=== PATIENT | female | born 2000 | race Caucasian/White ===

== ENCOUNTER 2020-07-04 18:07 | Emergency (ER) | payer OTHER, SELFPAY ==
--- NOTE | 2020-07-04 | XR_ITS ---
EXAMINATION: XR KNEE, RIGHT CLINICAL INFORMATION: Pain. COMPARISON: None TECHNIQUE: Two views of the right knee. FINDINGS: Bones and soft tissues are normal. No fracture or joint effusion. Alignment is anatomic. Joint spaces are well maintained. No abnormal soft tissue calcification. XR/XR knee RT 2V IMPRESSION: Normal right knee.
[2020-07-04 18:31] VITALS: BP 148/83; PULSE 102; RESP 16; TEMP 36.8; O2SAT 97; BMI 39.4
--- NOTE | 2020-07-04 20:19 | PC.NURSE ---
DUKE WRAP APPLIED TO R KNEE. PATIENT ALREADY HAD OWN CRUTCHES.
--- NOTE | 2020-07-04 20:30 | ED.LOWEXIN ---
HPI - Extremity Injury (Lower) General Chief Complaint: Trauma Stated Complaint: Ankle Pain Time Seen by Provider: 07/04/20 20:16 Source: patient Mode of arrival: ambulatory Limitations: no limitations History of Present Illness HPI Narrative: States at work during a restraint patient pushed her in the right knee area felt the knee buckle and fell onto the knee. Having right knee pain. complaint: knee injury Injury: Right: knee Place: work Severity: moderate Other symptoms: none Treatments prior to arrival: cold therapy Related Data Allergies Allergy/AdvReac Type Severity Reaction Status Date / Time No Known Allergies Allergy Unverified 05/12/20 16:50 [No Known Allergies*] Dust Allergy Unknown Uncoded 10/24/18 00:00 Review of Systems Review of Systems: Constitutional: No Weight loss, No Fever, No Chills, No Night Sweats, No Fatigue, No Malaise ENT/Mouth: No Hearing loss, No Ear Pain, No Nasal Congestion, No Sinus Pain, Eyes: No Eye Pain, No Swelling, No Redness Cardiovascular: No Chest Pain, No SOB Respiratory: No Cough, No Sputum, No Wheezing, No Smoke Exposure, No Dyspnea Gastrointestinal: No Nausea, No Vomiting, No Diarrhea, No Constipation, No abdominal Pain Genitourinary: no irregular bleeding, No Dysuria, No Urinary Frequency, No Hematuria, No Urinary Incontinence, No Urgency, No Flank Pain, No Urinary Flow Changes, No Hesitancy Musculoskeletal: No joint pain, No Myalgias, No Joint Swelling Skin: No Skin Lesions, No rash Neuro: No Weakness, No Numbness, No Paresthesias Psych: No Anxiety/Panic, No Depression Heme/Lymph: No Bruising, No Bleeding,No Lymphadenopathy Endocrine: No Polyuria, No Polydipsia, No Temperature Intolerance Yes all other systems are reviewed and are negative [facility] Past Medical History Attestation statement: The following information was validated with the patient. Source: unable to obtain Social History Social History Smoking Status: Never smoker Use of substances other than those prescribed or required for medical reasons: Yes Substance Use Type: Marijuana Substance Use Frequency: Occasionally Advance Directives: No Physical Exam Vital Signs: Vital Signs: Last Vital Signs Temp 98.2 F 07/04/20 18:31 Pulse 102 H 07/04/20 18:31 Resp 16 07/04/20 18:31 BP 148/83 H 07/04/20 18:31 Pulse Ox 97 07/04/20 18:31 Body Mass Index 39.4 Reviewed Const: General: cooperative and healthy appearing; No acute distress or intoxicated appearing Nutritional Appearance: average body habitus Orientation/consciousness: patient oriented x3 HENMT: Head: Yes normal to inspection Ears: hearing grossly normal bilaterally Eyes: General: appearance normal, both eyes and all related structures Visual Aragon: normal visual aragon by confrontation Neck: Neck: Yes normal visual inspection and No tender Thyroid: Thyroid normal Chest: Chest palpation & inspection: normal inspection of the chest Resp: Effort & Inspection: normal respiratory effort Cardio: Jugular venous distension: no JVD Skin: General skin exam: no rashes or lesions noted Neuro: General: patient oriented x3 Extrem: General: Yes normal to inspection Elbow/forearm/wrist images: 1. No swelling, negative drawer test MDM - Extremity Injury (Lower) MDM Narrative Medical decision making narrative: AP consistent with strain type injury. X-ray negative. Has her own crutches provided Romario wrap. Medical Records Attestation: I reviewed the patient's medical records. Lab Data Attestation: I reviewed the patient's lab results. Imaging Data Right knee x-ray: Radiologist's impression: [address] [address] XRay Report Signed Patient: Tsering Magdaleno#: [id number] : 2000Acct:[id number] Age/Sex: 20 / FADM Date: 07/04/20 Loc: HO.ED Attending Dr: Ordering Physician: Generic ED Physician Date of Service: 07/04/20 Procedure(s): XR knee RT 2V Accession Number(s): [id number] cc: Generic ED Physician~ EXAMINATION: XR KNEE, RIGHT CLINICAL INFORMATION: Pain. COMPARISON: None TECHNIQUE: Two views of the right knee. FINDINGS: Bones and soft tissues are normal. No fracture or joint effusion. Alignment is anatomic. Joint spaces are well maintained. No abnormal soft tissue calcification. XR/XR knee RT 2V IMPRESSION: Normal right knee. Dictated By:GHULAM DAVIS MD Signed By:<Electronically signed by GHULAM DAVIS MD in OV>07/04/201910 DD/ 04 TD/TT: Director Patient Accounting: LONA Discharge Plan Discharge Clinical Impression: Right knee sprain Patient Disposition: Home, Self-Care Instructions: Knee Sprain (ED), Crutch Instructions (ED) Additional Instructions: Rest, ice, compress Elevate Use crutches as instructed Romario wrap for comfort Gradually increase activity as tolerated if pain persist after week follow-up with orthopedic As discussed As this happened at work please follow-[facility] with [facility] as well Thank you Referrals: Frederick Swift MD [Physician] - 1 week Physician,None [Primary Care Provider] - 1 week (Your primary care doctor) Interventions: ED Discharge Assessment Last Done: 07/04/20 20:48 Discharge Date/Time: 07/04/20 20:49
== END 2020-07-04 20:49 | disposition home or self-care (01) ==
PROVIDERS: Emergency Provider Emergency Medicine
DX: M25.571 Pain in right ankle and joints of right foot (principal)
CPT/HCPCS: 73560; 99283; 99284

== ENCOUNTER 2020-07-19 17:39 | Outpatient (REF) | payer OTHER, SELFPAY | END 2020-07-19 17:40 | disposition home or self-care (01) | LOC: HO.LAB 17:39 | PROVIDERS: Visit Provider Internal Medicine | DX: Z20.828 Contact with and (suspected) exposure to other viral communicable diseases (principal) | CPT/HCPCS: C9803; U0003 ==

== ENCOUNTER 2021-09-22 10:48 | Outpatient (REF) | payer OTHER, SELFPAY ==
[2021-09-22 13:28] LABS: Hematocrit 40.6 % (37.0-47.0); Mean Corpuscular Hemoglobin 26.2 pg (27.0-33.0); Mean Corpuscular Volume 81.9 fL (80.0-98.0); Mean Platelet Volume 9.9 fL (9.4-12.3); Platelet Count 420 X10*3/uL (160-400); Red Blood Count 4.96 X10*6/uL (4.20-5.50); Red Cell Distribution Width 15.1 % (11.0-16.0); White Blood Count 10.5 X10*3/uL (4.8-10.8)
[2021-09-22 13:44] LABS: Alanine Aminotransferase 23 U/L (0-31); Albumin Level 4.1 g/dL (3.5-5.0); Alkaline Phosphatase 79 U/L (39-117); Anion Gap 14 (12-20); Aspartate Amino Transferase 19 U/L (5-31); Bilirubin Direct 0.2 mg/dL (0.0-0.5); Bilirubin Total 0.7 mg/dL (0.0-1.0); Blood Urea Nitrogen 7 mg/dL (9-16); Calcium 9.2 mg/dL (8.4-10.2); Carbon Dioxide 24 mmol/L (22-29); Chloride 104 mmol/L (96-108); Cholesterol 226 mg/dL; Estimated Glomerular Filt Rate > 60; Glucose Fasting 105 mg/dL (60-99); HDL Cholesterol 37 mg/dL; LDL Cholesterol Calculated 131 mg/dl; Potassium 4.4 mmol/L (3.3-5.1); Sodium 138 mmol/L (135-145); Total Protein 7.6 g/dL (6.5-8.0); Triglycerides 294 mg/dL
[2021-09-22 14:04] LABS: TSH reflex Free T4 1.51 uIU/mL (0.32-4.0)
== END 2021-09-22 10:49 | disposition home or self-care (01) ==
LOC: HO.WFDLDS 10:48
PROVIDERS: Visit Provider Hospitalist
DX: Z00.00 Encounter for general adult medical examination without abnormal findings (principal)
CPT/HCPCS: 36415; 80048; 80061; 80076; 84443; 85027

== ENCOUNTER 2025-04-16 13:11 | Outpatient (REF) | payer OTHER, SELFPAY ==
[2025-04-16 16:17] LABS: Hematocrit 37.9 % (37.0-47.0); Hemoglobin 12.4 g/dl (12.0-16.0); Mean Corpuscular HGB Conc 32.7 g/dl (31.0-35.0); Mean Corpuscular Hemoglobin 27.2 pg (27.0-33.0); Mean Corpuscular Volume 83.1 fL (80.0-98.0); NRBC Abs Auto 0.000 X10*3/uL (0.0-0.012); NRBC Pct Auto 0.0 /100WBC (0.0-0.2); Platelet Count 354 X10*3/uL (160-400); Red Blood Count 4.56 X10*6/uL (4.20-5.50); White Blood Count 10.2 X10*3/uL (4.8-10.8)
[2025-04-16 16:36] LABS: Alanine Aminotransferase 14 U/L (0-31); Albumin Level 4.4 g/dL (3.5-5.0); Alkaline Phosphatase 55 U/L (39-117); Anion Gap 14 (12-20); Aspartate Amino Transferase 19 U/L (5-31); Blood Urea Nitrogen 10 mg/dL (9-16); Calcium 8.9 mg/dL (8.4-10.2); Carbon Dioxide 21 mmol/L (22-29); Chloride 108 mmol/L (96-108); Cholesterol 204 mg/dL (<200); Estimated Glomerular Filt Rate > 60; HDL Cholesterol 50 mg/dL (>40); Potassium 3.8 mmol/L (3.3-5.1); Sodium 139 mmol/L (135-145); Total Protein 7.2 g/dL (6.5-8.0); Triglycerides 143 mg/dL (<150)
[2025-04-16 17:07] LABS: Folate 11.3 ng/mL (> or = 4.0); Vitamin B12 320 pg/mL (200-900)
== END 2025-04-16 13:12 | disposition home or self-care (01) ==
LOC: HO.WFDLDS 13:11
PROVIDERS: PCP Nurse Practitioner Family; Visit Provider Nurse Practitioner Family
DX: Z76.89 Persons encountering health services in other specified circumstances (principal); Z00.00 Encounter for general adult medical examination without abnormal findings; Z28.21 Immunization not carried out because of patient refusal; F33.0 Major depressive disorder, recurrent, mild; R73.01 Impaired fasting glucose; E66.01 Morbid (severe) obesity due to excess calories; F41.1 Generalized anxiety disorder; E78.2 Mixed hyperlipidemia; E78.5 Hyperlipidemia, unspecified; F90.0 Attention-deficit hyperactivity disorder, predominantly inattentive type; N62 Hypertrophy of breast; M54.9 Dorsalgia, unspecified; Z92.89 Personal history of other medical treatment; Z68.34 Body mass index [BMI] 34.0-34.9, adult
CPT/HCPCS: 36415; 80053; 80061; 82306; 82607; 82746; 83036; 84443; 85027; 96127

== ENCOUNTER 2025-04-16 13:11 | Outpatient (AMB) | payer OTHER, SELFPAY ==
--- OUTSIDE RECORDS SUMMARY | 2025-04-16 13:14 | XMS_ITS | Patient Health Record ---
Author Organization [facility] Address [address] [place] [address] Care Team Providers [employer] Manager Name Role Phone AREN PAYNE Unavailable [phone] Allergies No Known Allergies Reason For Referral No Information Medications Medication SIG (Take, Route, Frequency, Duration) Notes Start Date End Date Status Vibha 13.5 MG as directed Intrauterine Active miSOPROStol 200 MCG 2 tablets Orally night before procedure; Duration: 1 days 11/30/2020 Not-Taking buPROPion HCl ER (Smoking Det) 150 MG 1 tablet in the morning Orally Once a day; Duration: 30 day(s) ALSO TAKES 75 MG AT NIGHT Active Bactrim DS 800-160 MG 1 tablet Orally Twice a day; Duration: 10 day(s) 01/18/2021 Not-Taking FLUoxetine HCl 20 MG 1 capsule Orally On ce a day Not-Taking Abilify 10 MG 1 tablet Orally Once a day Not-Taking traZODone HCl 100 MG 1 tablet at bedtime Orally Once a day Not-Taking Social History Tobacco Use: Social History Observation Description Date Details (start date - stop date) Current some da y smoker NA - NA Tobacco Use/Smoking Question Answer Notes Are you a current some day smoker Alcohol Screen (Audit-C) Question Answer Notes Did you have a drink contain ing alcohol in the past year? Yes How often did you have a dri nk containing alcohol in the past year? 2 to 3 times a week (3 points) How many drinks did you have on a typical day when you were drinking in the past year? 1 or 2 drinks (0 point) How often did you have 6 or more drinks on one occasion in the past year? Never (0 point) Points 3 Interpretation Positive Problems Problem Type SNOMED Code ICD Code Onset Dates Problem Status W/U Status Risk Notes Problem Bipolar disorder (76881240) Bipolar disorder, unspecified (F31.9) Active confirmed Problem Anxiety disorder (348270822) Anxiety disorder, unspecified (F41.9) Active confirmed Problem Post-traumati c stress disorder (45499200) Post-traumatic stress disorder, unspecified (F43.10) Active confirmed Plan Of Treatment Pending Test Test Name Order Date Test, Urine 01/04/2021 Test, Urine 01/18/2021 ANTI-HEPATITIS C 11/30/2020 HEP. B SURF. AG 11/30/2020 SYPHILIS TESTING 11/30/2020 HIV AB-AG 4TH GENERATION 11/30/2020 ULTRASOUND: PELVIC W/TRANSVAGINAL 2021 Insurance Providers Payer Name Payer Address Payer Phone Subscriber Number Group Number Insured Name Patient Relationship to Insured Coverage Start Date Coverage End Date [facility] [address] [place] [address] [phone] [id number] LIANA MCGRAW Self - patient is the insured [facility] [employer] [employer] [address] [address] [place] [address] [id number] LIANA MCGRAW Self - patient is the insured Medical (General) History Medical History History ICD Code Encounter for screening for depression Z 13.31 Anxiety disorder, unspecified F41.9 Post-traumatic stress disorder, unspecif ied F43.10 Bipolar disorder, unspecified F31.9 Surgical History Surgery Date(Month/Year)
--- NOTE | 2025-04-16 13:17 | A.OFFPC_ITS ---
Vital Signs 04/16/25 13:18 Height 5 ft 4 in Weight 203 lb 8 oz BMI 34.9 BP 126/84 Blood Pressure Location Rt brachial Position Sitting Respiration 12 Pulse 91 Pulse Source Pulse Oximeter Temp 98.6 F Temp Source Oral Pulse Oximetry (%) 96 Oxygen Delivery Method Room Air Intake Visit Reasons: YVONNE from [facility] Intake Note: New patient visit Radiation Protection Technician Required: No Allergies No Known Allergies (No Known Allergies*) Allergy (Verified 04/16/25 13:43) Dust Allergy (Mild, Uncoded 04/16/25 13:17) sneezing, watery eyes. 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 - Untreated anxiety and depression with therapy in place. This is per her choice; does not like meds. Denies SI/HI - ADHD managed with Adderall. Outside pr escriber - Hyperlipidemia and impaired fasting gl ucose noted on previous labs. - Upper back pain related to breast size ; exacerbated by weight fluctuations. Would like to consult with breast surgery to discuss reduction. Past Surgical History - Arterial repair surgery on the right a rm. - Multiple dental surgeries including wi sdom tooth and extra teeth removal. Family History - Mother is under my care; no specific a ilments discussed. Social History - Lives with mother, sister, and brother . 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 - Expresses feeling safe at home. - Engages in sexual activity; practices safe sex. - Describes anxiety with medical procedu res such as blood draws. Health Maintenance - Declined tetanus vaccination. - Discussed anxiety towards lab tests an d reassured about process. - Emphasized annual wellness visits and staying in care with ANIMAL CAREGIVER. - Encouraged to undergo physical therapy for upper back pain related to breast size. Review of Systems - General: Reports anxiety about doctor? s appointments. - Respiratory: Denies daily inhaler use, previously used during COVID-19. - Sexual: Reports safe sexual practices. - Musculoskeletal: Reports upper back pa in. - Psychiatric: Reports severe anxiety. Physical Exam General: Well developed, well nourished, in no acute distress. Appears stated age. Head: Normocephalic, atraumatic. Eyes: Pupils are equal, round and reactive to light and accommodation. Conjunctivae are clear. Vision grossly normal. Ears: TMs clear AU, EACS WNL Nose: Patent, without discharge.Mouth: There are no ulcers or lesions noted. No inflammation, no post nasal drip, no plaques nor exudates. Neck: Supple, no adenopathy, + thyromegaly. Breast: Edu on SBE Lungs: Clear to auscultation bilaterally. No rales, rhonchi or wheeze noted. Good air flow in all hess. Heart: Regular rate and rhythm. No murmurs, click, rubs or gallops are noted. Abdomen: Bowel sounds present in all quadrants. The abdomen is soft, nontender, with no masses or organomegaly noted. No hernias are noted. : Deferred. Reviewed recommendations for routine SENIOR NET PROGRAMMER Musculoskeletal: Joints are nontender, without swelling, redness, or effusions. Range of motion is observed to be normal. Pulses: Peripheral pulses are equal and palpable bilaterally. Extremities: No clubbing, cyanosis nor edema is noted. Neurologic: Gait and station normal. Cranial Nerves 2-12 intact. Motor strength grossly symmetrical and intact. No sensory loss. Balance normal. Skin: No rashes, ulcers, or lesions noted. Turgor is good. Skin color is good. Hair and nails are without abnormalities. Psych: Normal eye contact, affect and mood appropriate, and normal interactions. Patient is alert and appropriate to context. Results Pending Discussion Notes I engaged in a detailed discussion with the patient regarding her current health status and management plans. We addressed her anxiety surrounding medical appointments and her refusal of tetanus vaccination. We discussed ongoing management of ADHD with Adderall, which she obtains virtually. The possibility of physical therapy was introduced for her upper back pain related to sig nificant breast size, caused by weight fluctuations. Further diagnostic studies such as updating labs and Pap smears were explained with reassurance about the process to ease anxiety. I reviewed the importance of staying in routine care and the potential consequences of discontinuation. Patient was given time to ask questions. All questions were answered to their satisfaction. Assessment and Plan 1. Anxiety - Continue counselin 2. ADHD - Maintain Adderall therapy and care wit h outside prescriber 3. Obesity - Lifestyle and dietary modifications. 4. Hyperlipidemia and Impaired Fasting G lucose - Monitor labs; dietary counseling. 5. Upper Back Pain/gynecomastia - Start physical therapy and breast surg kimberly referral. 6. Health Maintenance - Adherence to regular screening and exa ms. Patient Instructions - Continue your meetings with the daquane mary. - Stay on Adderall as directed for ADHD. - Follow a balanced diet and remain acti ve to manage obesity. - Plan to have your labs drawn as discus sed. - Begin physical therapy for back pain a s arranged. - RTO 1 year CPE, sooner as needed Consent Patient was informed and verbally consented to the use of an ambient scribe for clinic note documentation during this visit. An additional 20 minutes was spent addressing the problem(s) noted at todays visit. This includes time spent before the visit reviewing the chart, time spent during the visit, and time spent after the visit on documentation reviewing laboratory results, diagnostic imaging, medications, performing a medically necessary evaluation, counseling on diagnoses, care coordination, ordering appropriate tests, ordering appropriate medications, review of tests performed by other providers, reporting test results with the patient, communication with other healthcare providers. [facility] Medical History (Updated 04/16/25 @ 14:11 by [facility]) Bumps on skin Depression with anxiety IBS (irritable bowel syndrome) Injury of right axillary artery Surgical History (Updated 04/16/25 @ 13:23 by Malissa Chino CMA) History of mandibular surgery History of surgery on arm Family History (Updated 04/16/25 @ 13:23 by Malissa Chino CMA) Maternal Grandmother Cancer Other FH: mental illness Substance abuse Social History Housing: House Alcohol intake: current Alcohol intake frequency: other Alcohol type: hard liquor Patient Tobacco Use Status: Former Tobacco user (quit 2 months ago) Tobacco use type: Smokeless Tobacco Years Smoked: 1 e-Cigarette/Vaping Use: Former Use (quit 2 months ago, vaped for 5 years) Second Hand Smoke Exposure: No Substance Use Type: Marijuana service: No Current occupational status: employed Current occupation: registered electronics maintenance technician Current occupational exposures/hazards: No Cognitive needs: No Hearing needs: No Vision needs: No Questionnaire PHQ-9 Over the last 2 weeks, how often have you been bothered by any of the following problems? 1. Little interest or pleasure in doing things: several days 2. Feeling down, depressed, or hopeless: several days 3. Trouble falling or staying asleep, or sleeping too much: nearly every day 4. Feeling tired or having little energy: several days 5. Poor appetite or overeating: several days 6. Feeling bad about yourself - or that you are a failure or have let yourself or your family down: several days 7. Trouble concentrating on things, such as reading the newspaper or watching television: several days 8. Moving or speaking so slowly that other people could have noticed. Or the opposite - being so fidgety or restless that you have been moving around a lot more than usual: several days 9. Thoughts that you would be better off or of hurting yourself in some way: not at all Total score: 10 Depression Screening Interpretation: Positive Depression Screening Follow-up: Existing condition and In treatment Depression Screening Done: Yes Source: Developed by Drs. Bonilla Watson, Casi Garza, Kolby Banks and colleagues, with an educational lio from [employer]. Thrive Questionnaire Date Thrive assessed: 04/16/25 I am a: Patient What is your living situation today?: I have a steady place to live Within the past 12 months, did the food you bought not last and you didn't have the money to get more?: I choose not to answer this question Within the past 12 months, did you worry whether your food would run out before you got money to buy more?: I choose not to answer this question Do you have trouble paying for medicines?: I choose not to answer this question Do you have trouble getting transportation to medical appointments?: I choose not to answer this question Do you have trouble paying your heating and electricity bill?: I choose not to answer this question Do you have trouble taking care of your child, family member or friend?: I choose not to answer this question Do you have trouble with day-to-day activities such as bathing, preparing meals, shopping, managing finances, etc.?: I choose not to answer this question Are you currently unemployed and looking for a job?: I choose not to answer this question Are you interested in more education?: I choose not to answer this question Please select the resources that you would like help with: None Currently or been in a relationship where the following occur: I choose not to answer THRIVE Score: 0 AUDIT C Alcohol Use Questionnaire (AUDIT-C) 1. How often do you have a drink containing alcohol?: 2-4 times a month 2. How many drinks containing alcohol do you have on a typical day when you are drinking?: 3 or 4 3. How often do you have six or more drinks on one occasion?: Never Total Score: 3 Score Reviewed/Action Taken: Yes RAFAEL-7 AMB Questionnaire RAFALE-7 Date RAFAEL - 7 assessed: 04/16/25 Feeling nervous, anxious, or on edge: 3 = Nearly every day Not being able to stop or control worryin = Nearly every day Worrying too much about different things: 3 = Nearly every day Trouble relaxin = Nearly every day Being so restless that it is hard to sit still: 0 = Not at all Becoming easily annoyed or irritable: 1 = Several days Feeling afraid as if something awful might happen: 3 = Nearly every day Total RAFAEL-7 score (0-4 normal; 5-9 mild; 10-14 moderate; 15-21 severe): 16 Source: Developed by Drs. Bonilla Watson, Casi Garza, Kolby Banks and colleagues, with an educational lio from [employer]. RAFAEL-7 Assessment Billing RAFAEL-7 Assessment Tool: RAFAEL-7 Assessment 67124 Physical exam (Primary Care) Vital Signs: Last Vital Signs Temp 98.6 F 04/16/25 13:18 Pulse 91 04/16/25 13:18 Resp 12 04/16/25 13:18 BP 126/84 04/16/25 13:18 Pulse Ox 96 04/16/25 13:18 Oxygen Delivery Method Room Air 04/16/25 13:18 BMI result Body Mass Index 34.9 BMI Assessment/Plan discussion: High BMI High, discussed plan: lifestyle Tobacco/Smoking Status: Tobacco use Status Tobacco use date assessed 04/16/25 04/16/25 13:30 Patient Tobacco Use Status Former Tobacco user (quit 2 04/16/25 13:30 months ago) Tobacco use type Smokeless Tobacco 04/16/25 13:30 e-Cigarette/Vaping Use Former Use (quit 2 months 04/16/25 13:30 ago, vaped for 5 years) PHQ-9: PHQ-9 Score PHQ-9: Total score 10 04/16/25 13:43 Depression Screening Interpretation: Positive Depression Screening Follow-up: Existing condition and In treatment Thrive Assessment: Date of Thrive Assessment Date Thrive assessed 04/16/25 04/16/25 13:43 Currently or been in a relationship where the following occur: I choose not to answer Coding Level of Care Code New Pt Level 3 (12966) New Pt Prev Care 18-39yr(78103 Diagnoses Encounter to establish care with new provider Z76.89 Obesity (BMI 30-39.9) E66.9 Tetanus, diphtheria, and acellular pertussis (Tdap) vaccination declined Z28.21 Mild episode of recurrent major depressive disorder F33.0 Major depression episode severity: mild RAFAEL (generalized anxiety disorder) F41.1 Morbid obesity E66.01 Moderate mixed hyperlipidemia not requiring statin therapy E78.2 Hyperlipidemia type: moderate mixed hyperlipidemia not requiring statin therapy Elevated fasting glucose R73.01 Attention deficit hyperactivity disorder (ADHD), predominantly inattentive type F90.0 Attention deficit-hyperactivity disorder type: predominantly inattentive Female gynecomastia N62 Upper back pain M54.9 Encounter for general adult medical examination without abnormal findings Z00.00 History of Papanicolaou smear of cervix Z92.89 Additional Codes RAFAEL-7 Assessment Billing - RAFAEL-7 Assessment Tool: RAFAEL-7 Assessment 79062 ([id number]) Assessment & Plan Assessment & Plan (1) Encounter to establish care with new provider: Code(s): Z76.89 - Persons encountering health services in other specified circumstances (2) Obesity (BMI 30-39.9): Code(s): E66.9 - Obesity, unspecified Category: Medical (3) Tetanus, diphtheria, and acellular pertussis (Tdap) vaccination declined: Code(s): Z28.21 - Immunization not carried out because of patient refusal Category: Medical (4) MDD (major depressive disorder), recurrent episode: Code(s): F33.9 - Major depressive disorder, recurrent, unspecified Category: Medical Qualifiers: Major depression episode severity: mild Qualified Code(s): F33.0 - Major depressive disorder, recurrent, mild (5) RAFAEL (generalized anxiety disorder): Code(s): F41.1 - Generalized anxiety disorder Category: Medical (6) Morbid obesity: Code(s): E66.01 - Morbid (severe) obesity due to excess calories Category: Medical (7) HLD (hyperlipidemia): Code(s): E78.5 - Hyperlipidemia, unspecified Category: Medical Qualifiers: Hyperlipidemia type: moderate mixed hyperlipidemia not requiring statin therapy Qualified Code(s): E78.2 - Mixed hyperlipidemia (8) Elevated fasting glucose: Code(s): R73.01 - Impaired fasting glucose Category: Medical (9) ADHD: Code(s): F90.9 - Attention-deficit hyperactivity disorder, unspecified type Category: Medical Qualifiers: Attention deficit-hyperactivity disorder type: predominantly inattentive Qualified Code(s): F90.0 - Attention-deficit hyperactivity disorder, predominantly inattentive type (10) Female gynecomastia: Code(s): N62 - Hypertrophy of breast Category: Medical (11) Upper back pain: Code(s): M54.9 - Dorsalgia, unspecified Category: Medical (12) Encounter for general adult medical examination without abnormal findings: Onset Date: ~04/16/25 Code(s): Z00.00 - Encounter for general adult medical examination without abnormal findings Category: Medical (13) History of Papanicolaou smear of cervix: Onset Date: ~09/2021 Code(s): Z92.89 - Personal history of other medical treatment Category: Medical Plan , Orders: Orders Comprehensive Met. Panel Today E66.01 - Morbid (severe) obesity due to excess calories, E66.9 - Obesity, unspecified, E78.5 - Hyperlipidemia, unspecified, R73.01 - Impaired fasting glucose Hemoglobin A1c Today E66.01 - Morbid (severe) obesity due to excess calories, E66.9 - Obesity, unspecified, E78.5 - Hyperlipidemia, unspecified, R73.01 - Impaired fasting glucose Lipid Panel Today E66.01 - Morbid (severe) obesity due to excess calories, E66.9 - Obesity, unspecified, E78.5 - Hyperlipidemia, unspecified, R73.01 - Impaired fasting glucose TSH reflex Free T4 Today E66.01 - Morbid (severe) obesity due to excess calories, E66.9 - Obesity, unspecified, E78.5 - Hyperlipidemia, unspecified, R73.01 - Impaired fasting glucose Vitamin B12 and Folate Today E66.01 - Morbid (severe) obesity due to excess calories, E66.9 - Obesity, unspecified, E78.5 - Hyperlipidemia, unspecified, R73.01 - Impaired fasting glucose PT Evaluation and Treatment Today M54.9 - Dorsalgia, unspecified, N62 - Hypertrophy of breast Complete Blood Count no Diff Today E66.01 - Morbid (severe) obesity due to excess calories, E66.9 - Obesity, unspecified, E78.5 - Hyperlipidemia, unspecified, R73.01 - Impaired fasting glucose Vitamin D 25-OH Total Today E66.01 - Morbid (severe) obesity due to excess calories, E66.9 - Obesity, unspecified, E78.5 - Hyperlipidemia, unspecified, R73.01 - Impaired fasting glucose Referrals Breast Surgery Referral M54.9 - Dorsalgia, unspecified, N62 - Hypertrophy of breast Patient Instructions: Walk-In Care (Urgent Care): We Make it Easy Walk-in for urgent medical issues such as: ? Seasonal Allergies ? Insect Bites ? Cough ? Diarrhea ? Acute Asthma Attacks ? Back, Knee or Joint Pain ? Ear Infection ? Fever without a Rash ? Headaches ? Nausea ? [place], Rash or Skin Irritation ? Sore Throat ? Sports Physicals ? Vomiting Most insurances are accepted. Patients do not need to be part of the [facility] to seek care at the walk-in clinic. Locations [facility] [place] [address] ? [phone] [facility] Walk-In Care in [place] provides services to ages 18 and over. Open Saturday-Saturday: 7 a.m. to 5 p.m. and Saturday: 9 a.m. to 3 p.m.* *Hours may vary due to staffing availability. To confirm Walk-In Care hours in [place], please call [phone]. [address] [place] [address] ? [phone] [facility] Walk-In Care in [place] provides services to ages 12 and over. Open Saturday-Saturday: 8 a.m. to 5 p.m. Hours may vary due to staffing availability. To confirm Walk-In Care hours in [place], please call [phone]. LABORATORY SERVICES: [facility] Lab ? Primary Location [address] [place] [address] Saturday through Saturday 6:00 AM ? 5:00 PM Saturday 7:00 AM ? 11:00 AM* [phone] The [facility] Lab is centrally located near the front entrance of the [facility] for easy outpatient access. Convenient parking is provided for outpatients. *Hours may vary due to staffing availability. To confirm Laboratory hours for any location, please call [phone]. Offsite Location For your convenience, we offer offsite laboratory draw stations at the following locations: [address] [place] [address] ? [address], [address] Saturday through Saturday 7:30 AM ? 1:00 PM* [phone] *Hours may vary due to staffing availability. To confirm Laboratory hours for any location, please call [phone]. [place] ? [address] Saturday through Saturday 6:00 AM ? 3:30 PM* Saturday 6:30 AM ? 3 PM* [phone] *Hours may vary due to staffing availability. To confirm Laboratory hours for any location, please call [phone] [place] [address] Saturday through Saturday 7:30 AM ? 4:00 PM* [phone] *Hours may vary due to staffing availability. To confirm Laboratory hours for any location, please call [phone] [place] [address] Saturday through 9:00 AM ? 4:00 PM* *Hours may vary due to staffing availability. To confirm Laboratory hours for any location, please call [phone]. Appointments are not necessary. Walk-ins are welcome. Like all the departments throughout the [facility], our Lab undergoes frequent reviews to ensure the quality and accuracy of test results, and our staff takes special pride in its status as a nationally accredited facility. Patient Portal: [facility] ONE PATIENT. ONE RECORD. BETTER CARE. [facility] has a fully integrated, cutting- edge mobile electronic health information system that has revolutionized the way we care for our patients and manage our organization. This system improves communication and coordination enabling us to provide safe, higher-quality care, and an overall positive experience for staff and patients. Our first priority, as always, is to deliver the highest quality care possible. The system is running in the background supporting that priority. This portal is for all [facility] and [facility] services and practices. If you are experiencing any technical difficulties with enrolling or logging into the Patient Portal please complete the [facility] Patient Portal Technical Support Form. [facility] now offers a new secure on-line interactive tool for patients to review their health information ? ?Patient Portal. This interactive web portal will enable patients and their families to take an active role in their care by providing easy, secure access to their health information via the internet. The Patient Portal provides patients with instant access to their health information, including laboratory results, medications, allergies, demographic information, visit history, and more. In addition to managing their own care, parents and health care proxies with authorized consent will appreciate the ability to access the records of those individuals for whom they provide care. Please note: if you wish to gain access (Proxy) to another patient?s portal, you will be required to come to the Medical Records Department in person at [facility]. Both the patient giving proxy access and the proxy will need to provide photo identification and complete the appropriate authorization. The Patient Portal also allows track their appointments online. The [facility] Patient Portal also saves patients time by allowing them to submit updates to their demographic and contact information prior to their visits. Portal email notifications will also alert patients to any new activity on their portal, such as test results and new appointments. In order to initially enroll in the [facility] Patient Portal, you will need to enter some required information including the following: * your [facility] Medical Record number * your personal home email address * name * date of Please note: In order to enroll in the [facility] Patient Portal, we need to have your email address on file in your electronic medical record. ?The email address needs to be specific for one person (yourself) in order for your Portal enrollment to be successful. ?You can update your email address in person with o Registration staff when you are registering for a hospital visit. ?Otherwise, you will need to come to the Health Information Management (Medical Records) Department at [facility]. ?We are open from Saturday ? Saturday from 7:30 a.m. ? 4:30 p.m. ?You will be required to present a photo id. Once you have successfully enrolled in the Patient Portal, you will receive a one-time user id and password for the Portal, sent to your email address. ?This will allow you to log into the Patient Portal within 99 hrs and reset your own logon id and password, and define personal security questions. ?Once your permanent login and password have been set, you can log into the [facility] Patient Portal at any time via the blue button above or from the Portal Logon button on any page of the [facility] website. [facility] and [facility] encourage all of our patients to enroll in Patient Portal as it presents a valuable opportunity for patients and their families to actively participate in their care and stay healthy Welcome to [facility]. ?We look forward to working with you. Health screenings for women You should visit your health care provider from time to time, even if you are healthy. The purpose of these visits is to: Screen for medical issues Assess your risk for future medical problems Encourage a healthy lifestyle Update vaccinations and other preventive care services Help you get to know your provider in case of an illness Information Even if you feel fine, you should still see your provider for regular checkups. These visits can help you avoid problems in the future. For example, the only way to find out if you have high blood pressure is to have it checked regularly. High blood sugar and high cholesterol levels also may not have any symptoms in the early stages. A simple blood test can check for these conditions. There are specific times when you should see your provider or receive specific health screenings. The [place] Preventive Services Task Force publishes a list of recommended screenings. Below are screening guidelines for women ages 18 to 39. BLOOD PRESSURE SCREENING Your blood pressure should be checked at least once every 3 to 5 years if: Your blood pressure is in the normal range (top number less than 120 mm Hg and bottom number less than 80 mm Hg) You don't have risk factors for high blood pressure Ask your provider if you need your blood pressure checked more often if: The top number is 120 to 129 mm Hg or the bottom number is 70 to 79 mm Hg You have diabetes, heart disease, kidney problems, are overweight, or have certain other health conditions You have a first-degree relative with high blood pressure You are Black You had high blood pressure during a If the top number is 130 mm Hg or greater or the bottom number is 80 mm Hg or greater, this is considered stage 1 hypertension. Schedule an appointment with your provider to learn how you can reduce your blood pressure. Watch for blood pressure screenings in your area. Ask your provider if you can stop in to have your blood pressure checked. BREAST CANCER SCREENING Experts do not agree about the benefits of breast self-exams in finding breast cancer or saving lives. Talk to your provider about what is best for you. A screening mammogram is not recommended for most women under age 40. Your provider may discuss and recommend mammograms, MRI scans, or ultrasounds if you have an increased risk for breast cancer, such as: A mother or sister who had breast cancer at a young age (most often starting scr eening earlier than the age the close relative was diagnosed) You carry a high-risk genetic marker CERVICAL CANCER SCREENING Cervical cancer screening should start at age 21 years unless your provider advises otherwise. After the first test: Women ages 21 through 29 should have a Pap test every 3 years. Exoprts do not agree on whether HPV testing is recommended for this age group. Women ages 30 through 65 should be screened with either a Pap test every 3 years or the HPV test every 5 years or both tests every 5 years (called cotesting ). Women who have been treated for precancer (cervical dysplasia) should continue to have Pap tests for 20 years after treatment or until age 65, whichever is longer. If you have had your uterus and cervix removed (total hysterectomy), and you have not been diagnosed with cervical cancer or precancer (high grade cervical neoplasia), you do not need cervical cancer screening. CHOLESTEROL SCREENING Cholesterol screening should begin at: Age 45 for women with no known risk factors for coronary heart disease Age 20 for women with known risk factors for coronary heart disease Repeat cholesterol screening should take place: Every 5 years for women with normal cholesterol levels More often if changes occur in lifestyle (including weight gain and diet) More often if you have diabetes, heart disease, kidney problems, or certain other conditions DIABETES SCREENING You should be screened for diabetes starting at age 35 and then repeated every 3 years if you have no risk factors for diabetes. Screening may need to start earlier and be repeated more often if you have other risk factors for diabetes, such as: You have a first degree relative with diabetes. You are overweight or have obesity. You have high blood pressure, prediabetes, or a history of heart disease. Screening for diabetes should be done if you are planning to become and you are overweight and have other risk factors such as high blood pressure. DENTAL EXAM Go to the dentist once or twice every year for an exam and cleaning. Your dentist will evaluate if you need more frequent visits. EYE EXAM Have an eye exam every 5 to 10 years before age 40. If you have vision problems, have an eye exam every 2 years or more often if recommended by your provider. You should have an eye exam that includes an examination of your retina (back of your eye) at least every year if you have diabetes. IMMUNIZATIONS Commonly needed vaccines include: Flu shot: get one every year. COVID-19 vaccine: ask your provider what is best for you. Tetanus-diphtheria and acellular pertussis (Tdap) vaccine: have one at or after age 19 as one of your tetanus-diphtheria vaccines if you did not receive it as an adolescent. Tetanus-diphtheria: have a booster (or Tdap) every 10 years. Varicella vaccine: receive 2 doses if you never had chickenpox or the varicella vaccine. Hepatitis B vaccine: receive 2, 3, or 4 doses, depending on your exact circumstances. Measles, mumps, and rubella (MMR) vaccine: receive 1 to 2 doses if you are not already immune to MMR. Your provider can tell you if you are immune. Ask your provider about the human papillomavirus (HPV) vaccine if: You have not received the HPV vaccine in the past You have not completed the full vaccine series (you should catch up on this shot) Ask your provider if you should receive other immunizations if you have certain health problems that increase your risk for some diseases such as pneumonia. INFECTIOUS DISEASE SCREENING Women who are sexually active should be screened for chlamydia and gonorrhea up until age 25. Women 25 years and older should be screened for chlamydia and gonorrhea if at high risk. Screening for hepatitis C: All adults ages 18 to 79 should get a one-time test for hepatitis C. people should be screened at every . Screening for human immunodeficiency virus (HIV): All people ages 15 to 65 should get a one-time test for HIV. Depending on your lifestyle and medical history, you may also need to be screened for infections such as syphilis and HIV, as well as other infections. PHYSICAL EXAM All adults should visit their provider from time to time, even if they are h ealthy. The purpose of these visits is to: Screen for disease Assess your risk of future medical problems Encourage a healthy lifestyle Update your vaccinations and other preventive care services Maintain a relationship with a provider in case of an illness Your height, weight, and BMI should be checked at every exam. During your exam, your provider may ask you about: Depression and anxiety Diet and exercise Alcohol and tobacco use Safety issues, such as using seat belts, smoke detectors, and intimate partner violence Your medicines and risk for interactions SKIN SELF-EXAM Your provider may check your skin for signs of skin cancer, especially if you're at high risk, such as if you: Have had skin cancer before Have close relatives with skin cancer Have a weakened immune system OTHER SCREENING Talk with your provider about colon cancer screening if you have a strong family history of colon cancer or polyps, or if you have had inflammatory bowel disease or polyps yourself. Routine bone density screening of women under 40 is not recommended.
[2025-04-16 13:18] VITALS: BP 126/84; PULSE 91; RESP 12; TEMP 37; O2SAT 96; BMI 34.9
== END 2025-04-16 14:02 | disposition home or self-care (01) ==
LOC: HO.HMCFM 13:12
PROVIDERS: PCP Nurse Practitioner Family; Visit Provider Nurse Practitioner Family
DX: Z00.00 Encounter for general adult medical examination without abnormal findings (principal); F41.1 Generalized anxiety disorder; E66.01 Morbid (severe) obesity due to excess calories; Z68.34 Body mass index [BMI] 34.0-34.9, adult; F33.0 Major depressive disorder, recurrent, mild; Z76.89 Persons encountering health services in other specified circumstances; Z28.21 Immunization not carried out because of patient refusal; E78.2 Mixed hyperlipidemia; R73.01 Impaired fasting glucose; F90.0 Attention-deficit hyperactivity disorder, predominantly inattentive type; N62 Hypertrophy of breast; M54.9 Dorsalgia, unspecified